=== PATIENT | female | born 1945 ===

== ENCOUNTER 2019-02-08 07:59 | Day surgery (SDC) | payer MEDICARE, BC ==
[~2019-02-08 07:59] MED LIST: Acetaminophen TAB* 325 MG PO PRN; Buffered Lidocaine 1% SYRIN* 1 ML/SYRINGE INTRADERM ONE
[2019-02-08] MEDS ORDERED: Midazolam* 1 MG/ML 2 ML VIAL (2 MG) ONE (10:10)
[2019-02-08 11:32] VITALS: BP 116/69
[2019-02-08] MEDS ORDERED: Lidocaine 1%* 5 ML VIAL ONE (11:38)
[2019-02-08] MEDS ORDERED: Ketorolac 0.5% OPHTH (NF) 0.5 % 5 ML BTL ONE (11:38)
[2019-02-08] MEDS ORDERED: Lidocaine 2% EPI 1:200000 MPF*10-20 ML VIAL ONE (11:38)
[2019-02-08] MEDS ORDERED: acetaZOLAMIDE TAB* 250 MG ONE (11:38)
[2019-02-08] MEDS ORDERED: Phenylephrine OPHTH SOL 2.5%* 2 ML ONE (11:38)
[2019-02-08] MEDS ORDERED: Neomycin/Polymy/Dex OPTH.SUSP* MAXITROL 0.1% 5 ML ONE (11:38)
[2019-02-08] MEDS ORDERED: Cyclopentolate 1% OPTH.SOL* 2 ML BTL ONE (11:38)
[2019-02-08] MEDS ORDERED: Proparacaine 0.5% OPHTH.SOL* 15 ML BTL ONE (11:38)
[2019-02-08] MEDS ORDERED: Povidone Iodine 5% OPTH* 30 ML BTL ONE (11:38)
--- NOTE | 2019-02-08 12:39 | OP ---
OPERATIVE NOTE: DATE OF OPERATION: 02/08/19 DATE OF : 41 SURGEON: Clifford Harvey MD. PREOPERATIVE DIAGNOSIS: Cataract, right eye. POSTOPERATIVE DIAGNOSIS: Cataract, right eye. OPERATIVE PROCEDURE: Extracapsular cataract extraction with intraocular lens implant, right eye. PROCEDURE: The patient was brought to the operating room after being given 1/2% Alcaine with epineph rine drops in the preoperative area. The eye was prepped and draped in the usual sterile fashion. S terile drape and eyelid speculum were placed. Again, topical 1/2% Alcaine with epinephrine was given . A paracentesis incision was made at the 9 o'clock position with the No.75 blade. Clear cornea inc ision 2.2 x 2.2-mm was created at the 12 o'clock position starting at the anterior limbus using the 2 .2-mm keratome. The anterior chamber was irrigated with 0.4 mL of 1% non-preservative intracameral l idocaine and filled with DisCoVisc. A capsulorrhexis was completed using the cystotome and the Utrat a forceps. Hydrodissection was performed with balanced salt solution. The lens nucleus was removed w ith the Phacoemulsification handpiece without incident. Cortex was removed with the irrigation-aspir ation handpiece. The capsular bag was re-inflated using DisCoVisc and an SN6AT3 23 implant was inser alvin with the shooter, oriented to 103 degree meridian. All measurements were confirmed with ORA. Th e irrigation- aspiration handpiece was used to remove all residual DisCoVisc. The eye was refilled w ith balanced salt solution and the wound checked and found to be watertight. Topical Maxitrol drops were given. [id number]/[facility] #: [id number]
== END 2019-02-08 11:25 | disposition home or self-care (01) ==
LOC: OREAST 07:59
PROVIDERS: ATTEND Specialist
DX: H25.11 Age-related nuclear cataract, right eye (principal); E03.9 Hypothyroidism, unspecified; I10 Essential (primary) hypertension; M19.90 Unspecified osteoarthritis, unspecified site
CPT/HCPCS: A9270-GY; J2250; V2787

== ENCOUNTER 2019-02-22 08:50 | Day surgery (SDC) | payer MEDICARE, BC ==
[2019-02-22] MEDS ORDERED: Midazolam* 1 MG/ML 2 ML VIAL (2 MG) ONE ×2 (10:50→10:58)
[2019-02-22] MEDS ORDERED: Phenylephrine OPHTH SOL 2.5%* 2 ML ONE (11:23)
[2019-02-22] MEDS ORDERED: Lidocaine 1%* 5 ML VIAL ONE (11:23)
[2019-02-22] MEDS ORDERED: Povidone Iodine 5% OPTH* 30 ML BTL ONE (11:23)
[2019-02-22] MEDS ORDERED: Lidocaine 2% EPI 1:200000 MPF*10-20 ML VIAL ONE (11:23)
[2019-02-22] MEDS ORDERED: acetaZOLAMIDE TAB* 250 MG ONE (11:23)
[2019-02-22] MEDS ORDERED: Cyclopentolate 1% OPTH.SOL* 2 ML BTL ONE (11:23)
[2019-02-22] MEDS ORDERED: Neomycin/Polymy/Dex OPTH.SUSP* MAXITROL 0.1% 5 ML ONE (11:23)
[2019-02-22] MEDS ORDERED: Ketorolac 0.5% OPHTH (NF) 0.5 % 5 ML BTL ONE (11:23)
[2019-02-22] MEDS ORDERED: Proparacaine 0.5% OPHTH.SOL* 15 ML BTL ONE (11:23)
[2019-02-22 11:49] VITALS: BP 110/68
--- NOTE | 2019-02-22 11:52 | OP ---
OPERATIVE NOTE: DATE OF OPERATION: 02/22/19 DATE OF : 41 SURGEON: Clifford Harvey M.D. PREOPERATIVE DIAGNOSIS: Cataract, left eye. POSTOPERATIVE DIAGNOSIS: Cataract, left eye. OPERATIVE PROCEDURE: Extracapsular cataract extraction with intraocular lens implant, left eye. PROCEDURE: The patient was brought to the operating room after being given 1/2% Alcaine with epineph rine drops in the preoperative area. The eye was prepped and draped in the usual sterile fashion. S terile drape and eyelid speculum were placed. Again, topical 1/2% Alcaine with epinephrine was given . A paracentesis incision was made at the 3 o'clock position with the No.75 blade. Clear cornea inc ision 2.2 x 2.2 mm was created at the 6 o'clock position starting at the anterior limbus using the 2. 2 mm keratome. The anterior chamber was irrigated with 0.4 mL of 1% non-preservative intracameral li docaine and filled with DisCoVisc. A capsulorrhexis was completed using the cystotome and the Utrata forceps. Hydrodissection was performed with balanced salt solution. The lens nucleus was removed wi th the Phacoemulsification handpiece without incident. Cortex was removed with the irrigation-aspira tion handpiece. The capsular bag was re-inflated using DisCoVisc and an SN6AT3 21.5 implant was inse rted with the shooter, oriented to the 100-degree meridian. Horizontal reference [place] were made wit h the patient in seated position in the preoperative area. All measurements were confirmed with ORA. The irrigation-aspiration handpiece was used to remove all residual DisCoVisc. The eye was refille d with balanced salt solution and the wound checked and found to be watertight. Topical Maxitrol shawanda ps were given. [id number]/[facility] #: [id number]
== END 2019-02-22 11:38 | disposition home or self-care (01) ==
LOC: OREAST 08:50
PROVIDERS: ATTEND Specialist
DX: H25.12 Age-related nuclear cataract, left eye (principal); I10 Essential (primary) hypertension; E89.0 Postprocedural hypothyroidism; M19.90 Unspecified osteoarthritis, unspecified site
CPT/HCPCS: A9270-GY; J2250; V2787